=== PATIENT | male | born 1960 | race Caucasian/White ===

== ENCOUNTER → 2017-01-02 | Outpatient (CLI) | payer OTHER | LOC: LAB 14:14 | DX: J02.8 Acute pharyngitis due to other specified organisms (principal) ==

== ENCOUNTER → 2018-07-16 | Outpatient (CLI) | payer OTHER ==
[2018-07-16 15:10] LABS: CALCIUM 9.6 mg/dL (8.4-10.2); POTASSIUM 4.4 mmol/L (3.6-5.0)
== END ==
LOC: LAB 14:38
PROVIDERS: Family Medicine
DX: Z12.5 Encounter for screening for malignant neoplasm of prostate (principal); Z12.12 Encounter for screening for malignant neoplasm of rectum; Z13.6 Encounter for screening for cardiovascular disorders; Z00.00 Encounter for general adult medical examination without abnormal findings; Z23 Encounter for immunization; E78.01 Familial hypercholesterolemia; R04.0 Epistaxis; R73.09 Other abnormal glucose

== ENCOUNTER → 2019-12-08 | Outpatient (CLI) | payer OTHER ==
[2019-12-08 07:44] LABS: ALBUMIN 4.4 g/dL (3.5-5.0); POTASSIUM 4.7 mmol/L (3.5-5.1)
[2019-12-08 07:45] LABS: CALCIUM 9.6 mg/dL (8.3-10.5)
[2019-12-08 07:47] LABS: TOTAL PROTEIN 7.7 g/dL (6.4-8.3)
[2019-12-08 07:48] LABS: TOTAL BILIRUBIN 1.2 mg/dL (0.2-1.2)
== END ==
LOC: LAB 07:09
PROVIDERS: Family Medicine
DX: Z12.5 Encounter for screening for malignant neoplasm of prostate (principal); E78.01 Familial hypercholesterolemia

== ENCOUNTER → 2019-12-26 | Day surgery (SDC) | payer OTHER | LOC: MSO 08:33 | DX: D17.1 Benign lipomatous neoplasm of skin and subcutaneous tissue of trunk (principal); E78.00 Pure hypercholesterolemia, unspecified; Z80.1 Family history of malignant neoplasm of trachea, bronchus and lung; Z79.899 Other long term (current) drug therapy ==

== ENCOUNTER → 2021-01-25 | Outpatient (CLI) | payer OTHER ==
[2021-01-25 08:10] LABS: ALBUMIN 4.3 g/dL (3.5-5.0); POTASSIUM 4.1 mmol/L (3.5-5.1)
[2021-01-25 08:12] LABS: CALCIUM 8.3 mg/dL (8.3-10.5)
[2021-01-25 08:13] LABS: TOTAL PROTEIN 7.7 g/dL (6.4-8.3)
[2021-01-25 08:15] LABS: TOTAL BILIRUBIN 1.3 mg/dL (0.2-1.2)
== END ==
LOC: LAB 07:07
PROVIDERS: Family Medicine
DX: Z12.5 Encounter for screening for malignant neoplasm of prostate (principal); I10 Essential (primary) hypertension; E78.00 Pure hypercholesterolemia, unspecified

== ENCOUNTER → 2021-02-08 | Outpatient (CLI) | payer OTHER ==
[2021-02-08 10:49] LABS: POTASSIUM 4.5 mmol/L (3.5-5.1)
[2021-02-08 10:50] LABS: CALCIUM 9.7 mg/dL (8.3-10.5)
== END ==
LOC: LAB 10:13
PROVIDERS: Family Medicine
DX: Z12.5 Encounter for screening for malignant neoplasm of prostate (principal); I10 Essential (primary) hypertension; E78.00 Pure hypercholesterolemia, unspecified; R73.01 Impaired fasting glucose

== ENCOUNTER → 2021-08-09 | Outpatient (CLI) | payer OTHER | LOC: LAB 11:58 | DX: E11.9 Type 2 diabetes mellitus without complications (principal) ==